=== PATIENT | male | born 1985 | race Caucasian/White ===

== ENCOUNTER → 2017-03-16 | Outpatient (CLI) | payer OTHER | LOC: LABWHC1 16:30 | PROVIDERS: ATTEND Internal Medicine Endocrinology, Diabetes & Metabolism | DX: E05.90 Thyrotoxicosis, unspecified without thyrotoxic crisis or storm (principal) | CPT/HCPCS: 36415; 84439; 84443; 84445; 84480 ==

== ENCOUNTER → 2017-04-24 | Outpatient (CLI) | payer OTHER ==
--- NOTE | 2017-04-26 07:59 | NM ---
EXAMINATION TYPE: NM thyroid uptake only multi DATE OF EXAM: 04/25/2017 COMPARISON: NONE HISTORY: Thyrotoxicosis Following administration of 10.6 uCi I-131 capsule. FINDINGS: 4 hour uptake is 7.7% and 24-hour uptake is 15.8%. Patient refused the remaining portion of the exam. IMPRESSION: Borderline hypothyroidism
== END | disposition home or self-care (01) ==
LOC: RADNMMAIN 12:05
PROVIDERS: ATTEND Internal Medicine Endocrinology, Diabetes & Metabolism
DX: E03.9 Hypothyroidism, unspecified (principal)
CPT/HCPCS: 78012; A9528

== ENCOUNTER 2019-07-27 16:29 | Emergency (ER) | payer OTHER ==
--- NOTE | 2019-07-27 17:09 | ED ---
General Adult HPI - General Chief complaint: Chest Pain Stated complaint: Chest pain Time Seen by Provider: 07/27/19 16:44 Source: patient Mode of arrival: wheelchair Limitations: no limitations - History of Present Illness Initial comments: Dictation was produced using [employer] dictation software. please excuse any grammatical, word or spelling errors. Chief Complaint: 34-year-old male with no significant past mental history presents with chest pressure and palpitations. History of Present Illness: Extremities presents today with chest pain and palpitations. Patient states he was watching the hockey when he began feeling palpitations. Patient has a history of tachycardia. Patient states he also has history of anxiety. Patient states his chest pressure went away. He does have strong family history of coronary artery disease. His father was diagnosed with a coronary artery disease at the age of 49. Patient states his symptoms have improved since he's been the hospital. He has palpitations. His here today because he wanted EKG. He doesn't want any further workup. The ROS documented in this emergency department record has been reviewed and confirmed by me. Those systems with pertinent positive or negative responses have been documented in the HPI. All other systems are other negative and/or noncontributory. PHYSICAL EXAM: General Impression: Alert and oriented x3, not in acute distress HEENT: Normocephalic atraumatic, extra-ocular movements intact, pupils equal and reactive to light bilaterally, mucous membranes moist. Cardiovascular: Tachycardic Chest: Lungs clear to auscultation bilaterally, no rhonchi, no wheeze, no rales Abdomen: Bowel sounds present, abdomen soft, non-tender, non-distended, no organomegaly Musculoskeletal: Pulses present and equal in all extremities, no peripheral edema Motor: no focal deficits noted Neurological: CN II-XII grossly intact, no focal motor or sensory deficits noted Skin: Intact with no visualized rashes Psych: Normal affect and mood ED course: 34-year-old male presents with palpitations and chest pressure. Patient states he is asymptomatic of any chest pain or chest pressure at this time. He does still continue for palpitations. Vital signs upon arrival shows heart rate of 139, respiratory signs within acceptable limits. EKG was obtained showing sinus tachycardia. Patient has nonspecific changes. He does have Q- wave in lead 3. Patient strongly adamant about leaving AGAINST MEDICAL ADVICE. He does not want any further workup. Patient told that a big as my recommendation since he does present to us with symptoms and has sinus tachycardia of unclear etiology. Patient understands that by being discharged at he could experience severe life-threatening disease or possibly even . Patient understands the risk. Patient's concomitant and understandable to his decisions. Patient will sign out AGAINST MEDICAL ADVICE. Told to return if he gets worse. He understands that we are open 24 hours a day. EKG interpretation: Ventricular rate 44, sinus tachycardia,. 150, care surgeon 86, QTC 442. No NC prolongation, no QTC prolongation, no ST or T-wave changes noted. - Related Data Home Medications Medication Instructions Recorded Confirmed Calcium Carbonate [Tums] 100 mg PO TID PRN 07/27/19 07/27/19 Allergies Allergy/AdvReac Type Severity Reaction Status Date / Time cephalexin [From Keflex] Allergy Rash/Hives Verified 07/27/19 16:56 Penicillins Allergy Anaphylaxis Verified 07/27/19 16:56 Sulfa (Sulfonamide Allergy Unknown Verified 07/27/19 16:56 Antibiotics) Review of Systems ROS Statement: Those systems with pertinent positive or pertinent negative responses have been documented in the HPI. ROS Other: All systems not noted in ROS Statement are negative. Past Medical History Past Medical History: No Reported History History of Any Multi-Drug Resistant Organisms: None Reported Past Surgical History: Orthopedic Surgery Past Psychological History: Anxiety Smoking Status: Never smoker Past Alcohol Use History: None Reported Past Drug Use History: None Reported General Exam Limitations: no limitations Course Vital Signs 07/27/19 16:41 Temperature 99.0 F Pulse Rate 139 H Respiratory 20 Rate Blood Pressure 132/84 O2 Sat by Pulse 98 Oximetry Disposition Clinical Impression: Palpitations Disposition: Left Against Medical Advice Condition: Fair Instructions (If sedation given, give patient instructions): Heart Palpitations (ED) Referrals: Alexander You MD [Primary Care Provider] - 1-2 days Time of Disposition: 17:09
[2019-07-27] MEDS ORDERED: SODIUM CHLORIDE 0.9% 1,000 ML IV STA (17:40)
[2019-07-27 17:43] VITALS: RESP 18
--- NOTE | 2019-07-27 18:32 | XR ---
EXAMINATION TYPE: XR chest 2V DATE OF EXAM: 07/27/2019 COMPARISON: 10/30/2013 HISTORY: Chest pain TECHNIQUE: Frontal and lateral views of the chest are obtained. FINDINGS: Heart and mediastinum are normal. Lungs are clear. Diaphragm is normal. Bony thorax appear s normal. IMPRESSION: Normal chest. No change.
[2019-07-27 18:36] LABS: Basophils % (A) 0 %; Eosinophils % (A) 0 %; HCT 43.2 % (39.0-53.0); HGB 15.2 gm/dL (13.0-17.5); Lymphocytes # (A) 1.1 k/uL (1.0-4.8); Lymphocytes % (A) 12 %; MCH 28.8 pg (25.0-35.0); MCHC 35.1 g/dL (31.0-37.0); MCV 82.1 fL (80.0-100.0); Mean Platelet Volume 6.8; Monocytes # (A) 0.5 k/uL (0-1.0); Monocytes % (A) 5 %; Neutrophils # (A) 7.6 k/uL (1.3-7.7); Neutrophils % (A) 81 %; Platelet Count 172 k/uL (150-450); RBC 5.26 m/uL (4.30-5.90); RDW 13.6 % (11.5-15.5); WBC 9.4 k/uL (3.8-10.6)
[2019-07-27 18:45] LABS: ALT 39 U/L (21-72); AST 24 U/L (17-59); African American GFR (CKD) >90 (>60 ml/min/1.73 sqM); Albumin 4.6 g/dL (3.5-5.0); Alkaline Phosphatase 59 U/L (38-126); Anion Gap 10 mmol/L; Blood Urea Nitrogen 14 mg/dL (9-20); Calcium 9.9 mg/dL (8.4-10.2); Carbon Dioxide 27 mmol/L (22-30); Chloride 104 mmol/L (98-107); Glucose 87 mg/dL (74-99); Magnesium 1.9 mg/dL (1.6-2.3); Non-African American GFR(CKD) >90 (>60 ml/min/1.73 sqM); Potassium 3.8 mmol/L (3.5-5.1); Sodium 141 mmol/L (137-145); Total Bilirubin 0.7 mg/dL (0.2-1.3); Total Protein 7.8 g/dL (6.3-8.2)
[2019-07-27 19:23] LABS: Partial Thromboplastin Time 26.8 sec (22.0-30.0); Prothrombin Time 10.4 sec (9.0-12.0)
--- NOTE | 2019-07-27 19:41 | ED ---
Medical Decision Making - Medical Decision Making Return evaluation obtained. CBC, coag panel, metabolic panel is unremarkable. Cardiac enzymes negative. No electrolyte abnormalities. Chest x-ray shows no acute processes. It is unclear what is causing patient's tachycardia. Patient has no lower showed a symptoms. No clinical suspicion for pulmonary embolus. Patient has no risk factors and has no lower extremity pain. Furthermore he is not short of breath. She is pain-free at this time. She is agreeable to discharge. He is given referral to outpatient cardiology. Patient understands return precautions. Understandable agreeable to disposition. - Lab Data Result diagrams: 07/27/19 18:05 07/27/19 18:05 Lab Results 07/27/19 07/27/19 07/27/19 Range/Units 18:05 18:05 18:05 WBC 9.4 (3.8-10.6) k/uL RBC 5.26 (4.30-5.90) m/uL Hgb 15.2 (13.0-17.5) gm/dL Hct 43.2 (39.0-53.0) % MCV 82.1 (80.0-100.0) fL MCH 28.8 (25.0-35.0) pg MCHC 35.1 (31.0-37.0) g/dL RDW 13.6 (11.5-15.5) % Plt Count 172 (150-450) k/uL Neutrophils % 81 % Lymphocytes % 12 % Monocytes % 5 % Eosinophils % 0 % Basophils % 0 % Neutrophils # 7.6 (1.3-7.7) k/uL Lymphocytes # 1.1 (1.0-4.8) k/uL Monocytes # 0.5 (0-1.0) k/uL Eosinophils # 0.0 (0-0.7) k/uL Basophils # 0.0 (0-0.2) k/uL PT 10.4 (9.0-12.0) sec INR 1.0 (<1.2) APTT 26.8 (22.0-30.0) sec Sodium 141 (137-145) mmol/L Potassium 3.8 (3.5-5.1) mmol/L Chloride 104 (98-107) mmol/L Carbon Dioxide 27 (22-30) mmol/L Anion Gap 10 mmol/L BUN 14 (9-20) mg/dL Creatinine 0.84 (0.66-1.25) mg/dL Est GFR (CKD-EPI)AfAm >90 (>60 ml/min/1.73 sqM) Est GFR (CKD-EPI)NonAf >90 (>60 ml/min/1.73 sqM) Glucose 87 (74-99) mg/dL Calcium 9.9 (8.4-10.2) mg/dL Magnesium 1.9 (1.6-2.3) mg/dL Total Bilirubin 0.7 (0.2-1.3) mg/dL AST 24 (17-59) U/L ALT 39 (21-72) U/L Alkaline Phosphatase 59 (38-126) U/L Troponin I (0.000-0.034) ng/mL Total Protein 7.8 (6.3-8.2) g/dL Albumin 4.6 (3.5-5.0) g/dL 07/27/19 Range/Units 18:05 WBC (3.8-10.6) k/uL RBC (4.30-5.90) m/uL Hgb (13.0-17.5) gm/dL Hct (39.0-53.0) % MCV (80.0-100.0) fL MCH (25.0-35.0) pg MCHC (31.0-37.0) g/dL RDW (11.5-15.5) % Plt Count (150-450) k/uL Neutrophils % % Lymphocytes % % Monocytes % % Eosinophils % % Basophils % % Neutrophils # (1.3-7.7) k/uL Lymphocytes # (1.0-4.8) k/uL Monocytes # (0-1.0) k/uL Eosinophils # (0-0.7) k/uL Basophils # (0-0.2) k/uL PT (9.0-12.0) sec INR (<1.2) APTT (22.0-30.0) sec Sodium (137-145) mmol/L Potassium (3.5-5.1) mmol/L Chloride (98-107) mmol/L Carbon Dioxide (22-30) mmol/L Anion Gap mmol/L BUN (9-20) mg/dL Creatinine (0.66-1.25) mg/dL Est GFR (CKD-EPI)AfAm (>60 ml/min/1.73 sqM) Est GFR (CKD-EPI)NonAf (>60 ml/min/1.73 sqM) Glucose (74-99) mg/dL Calcium (8.4-10.2) mg/dL Magnesium (1.6-2.3) mg/dL Total Bilirubin (0.2-1.3) mg/dL AST (17-59) U/L ALT (21-72) U/L Alkaline Phosphatase (38-126) U/L Troponin I <0.012 (0.000-0.034) ng/mL Total Protein (6.3-8.2) g/dL Albumin (3.5-5.0) g/dL Disposition Clinical Impression: Palpitations Disposition: HOME SELF-CARE Condition: Fair Instructions (If sedation given, give patient instructions): Heart Palpitations (ED) Is patient prescribed a controlled substance at d/c from ED?: No Referrals: Alexander You MD [Primary Care Provider] - 1-2 days [place] Galvin MD [STAFF PHYSICIAN] - 1-2 days Time of Disposition: 19:41
[2019-07-27 19:53] VITALS: BP 139/85; PULSE 80; TEMP 98.8
== END 2019-07-27 19:53 | disposition home or self-care (01) ==
LOC: EC 16:29
DX: R00.2 Palpitations (principal); R07.89 Other chest pain; R00.0 Tachycardia, unspecified; Z88.1 Allergy status to other antibiotic agents; Z88.0 Allergy status to penicillin; Z88.2 Allergy status to sulfonamides; Z82.49 Family history of ischemic heart disease and other diseases of the circulatory system
CPT/HCPCS: 36415; 71046; 80053; 83735; 84484; 85025; 85610; 85730; 93005; 96360; 99285